=== PATIENT | female | born 1985 | race Caucasian/White ===

== ENCOUNTER 2018-08-02 01:03 | Outpatient (CLI) | payer BC, SELFPAY ==
--- NOTE | 2018-08-02 07:42 | DI.US_ITS ---
SYMPTOMS/DIAGNOSIS: LT ADNEXAL PAIN, R10.2, PELVIC AND PERINEAL PAIN, IUD SURVEILLANCE, Z30.431 PELVIC ULTRASOUND: Transabdominal and transvaginal examination was performed. There are no priors for comparison. The uterus measures 8.3 cm long x 4.1 cm AP x 4.7 cm transverse. The endometrial stripe is within normal limits at .5 cm. There is an intrauterine device seen in good position within the canal. No myometrial masses are present. The right ovary measures 3.1 x 2.2 x 2.7 cm. The left ovary measures 3 x 1.3 x 2.7 cm. Small follicular cysts are present bilaterally. There is normal blood flow to the ovaries. No findings to suggest torsion are seen. There is a small amount of free fluid in the cul-de-sac. No hydronephrosis is identified. IMPRESSION: Intrauterine device in good position. Otherwise negative examination.
== END 2018-08-02 01:23 ==
PROVIDERS: Visit Provider Nurse Practitioner Women's Health
DX: R10.2 Pelvic and perineal pain (principal); Z30.431 Encounter for routine checking of intrauterine contraceptive device
CPT/HCPCS: 76830; 76856

== ENCOUNTER 2019-10-31 09:18 | Outpatient (CLI) | payer BC, SELFPAY ==
[2019-10-31 10:38] LABS: BUN 14 mg/dL (7-18); CREATININE 0.65 mg/dL (0.55-1.02); Calcium 8.3 mg/dL (8.5-10.1); Calculated LDL 101 mg/dL; Chloride 104 mmol/L (98-107); Cholesterol 185 mg/dL (<200); Glucose 85 mg/dL (74-106); HDL Cholesterol 74 mg/dL (40-60); Potassium 3.7 mmol/L (3.5-5.1); Sodium 140 mmol/L (136-145); Triglyceride 52 mg/dL (<150)
== END 2019-10-31 09:38 ==
PROVIDERS: PCP Nurse Practitioner Family; Visit Provider Nurse Practitioner Family
DX: E78.5 Hyperlipidemia, unspecified (principal)
CPT/HCPCS: 36415; 80048; 80061

== ENCOUNTER 2019-12-05 14:31 | Emergency (ER) | payer BC, SELFPAY ==
[2019-12-05 14:43] VITALS: BP 115/59; PULSE 83; RESP 18; TEMP 37.2; O2SAT 99
--- NOTE | 2019-12-05 15:00 | DI.CT_ITS ---
EXAM: CT CHEST PE CTA CLINICAL HISTORY: hemoptysis TECHNIQUE: Post IV contrast according to the pulmonary embolism protocol. Axial CT angiography was performed with multi-slice acquisition and multi-planar and/or 3D reconstruc tions. COMPARISON: BARIUM SWALLOW UGI PA CXR from 10/03/2015 FINDINGS: There is no evidence of pulmonary emboli or aortic dissection. Heart size is normal. No infiltrate , pleural or pericardial effusions are seen. There is no evidence of mass or adenopathy. Incidental tiny nodules are seen in the lower left lower lobe. No suspicious bony abnormalities. Visualized p ortions of the upper abdomen are unremarkable. Breast implants are incidentally noted. IMPRESSION: No evidence of pulmonary emboli or other acute abnormality.
--- NOTE | 2019-12-05 15:08 | W.ED.GENAD ---
Discharge Plan Disposition Patient Disposition: HOME Condition: Stable Discharge Details Chief Complaint: RespSymp Clinical Impression: Bronchitis, Hemoptysis Primary Care Provider: Mignon Connor ED Provider: Deandre Dunbar Home Meds and New Rx's Prescriptions: New doxycycline hyclate 100 mg tablet 100 mg PO BID Qty: 14 RF: 0 Continued Mirena 20 mcg/24 hr (5 years) intrauterine device 1 insert IY ONCE RF: 0 Women's Multivitamin 18 mg-400 mcg- 500 mg-50 mcg tablet 1 tab PO DAILY RF: 0 citalopram 40 mg tablet 40 mg PO DAILY Qty: 90 RF: 4 buspirone 7.5 mg tablet 7.5 mg PO BID Qty: 180 RF: 4 Discharge Instructions Additional Instructions: Your cat scan did not show any pulmonary embolism or pneumonia. It did show a lung nodule which you should you inform them of when you follow up in a few weeks You are being treated with antibiotics given how long you have had symptoms for and the blood in your sputum if you feel more ill, have worsening shortness of breath or high fevers return to the emergency department if you still don't feel well in a week or not improved follow up with your primary care provider Medical Decision Making 34 yo female with hx of anxiety who underwent breast augmentation surgery in November comes in with cough and subjective fevers and chills along with nasal congestion for 5 days and has had intermittent blood in the sputum. No recent travel, denies smoking or drug use and uses alcohol occassionally. Was seen by pcp and referred here for concern for dvt. She denies being immobile after the surgery, d/c'd on the same day. No leg swelling or calf pain. She is in no distress on exam speaking in full sentences, clear lung sounds and does have clear rhinorrhea. Suspect uri vs sinusitis but given recent surgery with hemoptysis will obtain cta given wells score is moderate. patient's labs and imaging unremarkable and remains stable. Has a lung nodule that I informed her of. Given her symptoms and hemoptysis feel abx indicated, will start doxycycline and advised to f/u with pcp and return precautions given Differential Diagnosis Differential Diagnosis: uri, pulmonary embolism, pneumonia Medical Records Medical records reviewed: Yes I reviewed the patient's medical records. Imaging Data Radiologic Study: Attestation: I personally reviewed and interpreted this imaging study as follows: Radiologist's impression: IMPRESSION: No acute abnormality. Two and 3 mm nodules in superior segment left lower lobe. Followup as per Fleischner society guidelines below Lab Data Lab results reviewed: Yes I reviewed the patient's lab results. HPI General Mode of arrival: ambulatory. Date/Time Provider Initiated Documentation: 12/05/19 14:56. Limitations to Documentation: no limitations. Information obtained by: patient. History of Present Illness 34 year old F presents to the emergency department with the chief complaint of coughing up blood, described as moderate, Patient started experiencing this day(s) (4) and it has been intermittent. No relieving factors improve symptom(s), No exacerbating factors reported . Patient notes cough. Patient did receive the following treatments prior to arrival, none Related Data Home Medications Medication Instructions Recorded Confirmed [id number]-[id number] 18 mg-FA 400 1 tab PO DAILY tab 06/10/18 12/05/19 mcg-calcium 500 mg-vit K 50 mcg tablet levonorgestrel 20 mcg/24 hours (5 1 insert IY ONCE 10/28/18 12/05/19 yrs) 52 mg intrauterine device citalopram 40 mg tablet 40 mg PO DAILY #90 tab 03/28/19 12/05/19 buspirone 7.5 mg tablet 7.5 mg PO BID #180 tab 06/30/19 12/05/19 doxycycline hyclate 100 mg PO BID #14 tab 12/05/19 Previous Rx's Medication Instructions Recorded citalopram 40 mg tablet 40 mg PO DAILY #90 tab 03/28/19 buspirone 7.5 mg tablet 7.5 mg PO BID #180 tab 06/30/19 doxycycline hyclate 100 mg PO BID #14 tab 12/05/19 Allergies Allergy/AdvReac Type Severity Reaction Status Date / Time amoxicillin Allergy hives Verified 12/05/19 14:49 General Stated Complaint: RespSymp LENORE: 2 Review of Systems All systems reviewed & are unremarkable except as noted in HPI and below Cardiovascular Cardiovascular: Denies chest pain and Denies dyspnea Respiratory Respiratory: Denies dyspnea Gastrointestinal Gastrointestinal: Denies abdominal pain, Denies nausea and Denies vomiting Musculoskeletal Musculoskeletal: Denies joint swelling [facility] Medical History (Updated 12/05/19 @ 17:11 by Deandre Dunbar MD) Abnormal Pap smear of cervix (Resolved) DENYS II 01/2008 s/p LEEP ASCUS, -HPV 10/14 & 11/15 ASCUS, +HPV 2012 s/p colposcopy which was negative Normal Paps since Depressive disorder (Chronic) Generalized anxiety disorder (Chronic) Hyperlipidemia (Chronic) IUD surveillance (Chronic) Mirena IUD Inserted 04/23/18 Surgical History (Updated 10/28/18 @ 09:15 by Mignon Connor NP) S/P LEEP (Inactive ~2007) Status post colposcopy (Inactive ~2012) Family History (Updated 10/28/18 @ 09:13 by Mignon Connor NP) Mother No problems noted. Father No problems noted. Sister Hyperthyroidism Son No problems noted. Maternal Grandfather No problems noted. Maternal Grandmother Pancreatic cancer Diabetes Paternal Grandfather No problems noted. 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 Pets and animals: Yes Pets and animals: dog(s) Sexually active: Yes Do you think of yourself as: straight/heterosexual Current gender identity: female What is your relationship status?: living with partner How often do you talk on the phone with friends or family?: twice per week How often do you get together with friends or relatives?: once per week How often do you attend adventism or muslim services?: decline to answer Do you belong to any clubs or organized social groups?: no Panel score (0-1 are the most socially isolated patients): 2 What type of physical activity do you participate in: walking Duration: 15-30 minutes/day Frequency: 3-4 times per week Lora/Pentecostalism: Mormon Special lora needs: No Seatbelt use: always Helmet use: Yes Helmet use: always Drive intox or ride w/intox cdl truck driver: No Do you feel safe at home: Yes Do you feel safe in your relationship?: Yes Female Reproductive History Menstrual control method: progestin IUCD (Mirena placed 04/23/18) History History 1 Para 1 Hx # Term Pregnancies Multiple births Hx # Pregnancies Ectopic pregnancies AB induced Hx Number of Living Children 1 AB spontaneous Exam Const General: no acute distress Orientation: alert HENMT Head: normal to inspection Ears: external ears normal General nose exam: external nose normal Mouth: moist mucous membranes Eyes General: appearance normal, both eyes and all related structures Neck Neck: normal visual inspection Resp Effort & Inspection: normal respiratory effort and able to speak in complete sentences Cardio Rate: regular rate Skin General skin exam: no rashes or lesions noted Neuro General: alert and oriented x3 Extrem General: normal to inspection Psych Mental Status: mental status grossly normal Course Vital Signs Vital signs: Vital Signs Temperature 37.2 C 12/05/19 14:43 Pulse 83 12/05/19 14:43 Respiratory Rate 18 12/05/19 14:43 Blood Pressure 115/59 L 12/05/19 14:43 Pulse Oximetry 99 12/05/19 14:43 Temperature 37.2 C 12/05/19 14:43 Temperature Source Oral 12/05/19 14:43 Pulse 83 12/05/19 14:43 Respiratory Rate 18 12/05/19 14:43 Respiratory Effort Non-Labored 12/05/19 14:48 Blood Pressure 115/59 L 12/05/19 14:43 Blood Pressure Position Sitting 12/05/19 14:43 Pulse Oximetry 99 12/05/19 14:43 Oxygen Delivery Method Room Air 12/05/19 14:43 Oxygen Flow Rate 0 12/05/19 14:43 Pain Level 0 12/05/19 14:43
[2019-12-05 15:28] LABS: Abs Immature Grans 0.02 k/cumm (0.0-0.09); Absolute Basophil Count 0.03 k/cumm (0.0-0.2); Absolute Eosinophil Count 0.11 k/cumm (0.0-0.7); Absolute Lymphocyte Count 1.74 k/cumm (1.2-3.4); Absolute Monocyte Count 1.34 k/cumm (0.11-0.7); Basophils % 0.3; HCT 37.4 % (36.0-46.0); HGB 12.1 g/dL (12.0-15.5); Immature Grans % 0.2 %; Lymphocytes % 15.4; Mean Corp. HGB Concentration 32.4 g/dL (32.0-36.0); Mean Corpuscular Hemoglobin 29.2 pg (27.0-33.0); Mean Corpuscular Volume 90.3 fL (80-95); Mean Platelet Volume 8.7 fL (8.0-11.0); Monocytes % 11.9; Neutrophils % 71.2; Platelet Count 342 x1000/uL (130-400); RBC 4.14 m/cumm (4.00-5.20); RBC Distribution Width 12.8 % (11.7-14.6); White Blood Cell Count 11.29 k/cumm (4.4-10.8)
[2019-12-05 15:29] LABS: Absolute Neutrophil Count 8.04 k/cumm (1.2-6.7)
[2019-12-05 15:32] VITALS: BP 115/67; PULSE 79; O2SAT 97
[2019-12-05 15:40] LABS: PTT Activated 27.1 sec (21.0-31.4); Prothrombin Time 10.1 sec (9.3-11.0)
[2019-12-05 15:41] LABS: ALT 32 U/L (14-59); AST 18 U/L (15-37); Albumin 4.1 g/dL (3.4-5.0); Alkaline Phosphatase 70 U/L (46-116); Anion Gap 9.2 mmol/L (3-11); BUN 14 mg/dL (7-18); Bilirubin, Total 0.5 mg/dL (0.2-1.0); CO2 28.8 mmol/L (21.0-32.0); Calcium 8.9 mg/dL (8.5-10.1); Chloride 101 mmol/L (98-107); Glucose 84 mg/dL (74-106); Potassium 3.9 mmol/L (3.5-5.1); Sodium 139 mmol/L (136-145); Total Protein 7.8 g/dL (6.4-8.2)
[2019-12-05] MEDS: Omnipaque 350 MG/ML 100 ML BTL IJ (16:17)
--- NOTE | 2019-12-05 16:51 | DI.VRAD_ITS ---
PROCEDURE INFORMATION: Exam: CT Angiography Chest With Contrast Exam date and time: 12/05/2019 3:08 PM Age: 34 years old Clinical indication: Other: Hemoptysis; Prior surgery; Additional info: Per PT: Breast surg 12/22 TECHNIQUE: Imaging protocol: Computed tomographic angiography of the chest with intravenous contrast. 3D rendering: MIP and/or 3D reconstructed images were created by the technologist. COMPARISON: RF BARIUM SWALLOW UGI PA CXR 10/03/2015 9:34 AM FINDINGS: Pulmonary arteries: Normal. No pulmonary emboli. Aorta: Unremarkable. No aortic aneurysm. No aortic dissection. Lungs: 3 mm and 2 mm nodules in the superior left lower lobe. Pleural space: Unremarkable. No pneumothorax. No pleural effusion. Heart: Unremarkable. No cardiomegaly. No pericardial effusion. Lymph nodes: Unremarkable. No enlarged lymph nodes. Bones/joints: Unremarkable. No acute fracture. Soft tissues: There are bilateral breast implants noted. IMPRESSION: No acute abnormality. Two and 3 mm nodules in superior segment left lower lobe. Followup as per Fleischner society guidelines below. New Fleischner Society guidelines for followup and management of pulmonary nodules (2017) Solid nodules Solitary nodule size: <6 mm ? low risk patients: no follow-up needed ? high risk patients: optional CT at 12 months Solitary nodule size: 6-8 mm ? low risk patients: follow-up at 6-12 months, then consider further follow-up at 18-24 months ? high risk patients: initial follow-up CT at 6-12 months and then at 18-24 months if no change Solitary nodule size: >8 mm ? either low or high risk patients o consider follow-up CT at 3 months, and/or CT-PET, and/or biopsy Multiple nodules size: <6 mm ? low risk patients: no routine follow-up ? high risk patients: optional CT at 12 months Multiple nodules size: 6-8 mm ? low risk patients: follow-up at 3-6 months, then consider further follow-up at 18-24 months ? high risk patients: follow-up at 3-6 months, then at 18-24 months if no change Multiple nodules size: >8 mm ? low risk patients: follow-up at 3-6 months, then consider further follow-up at 18-24 months ? high risk patients: follow-up at 3-6 months, then at 18-24 months if no change Note: newly detected indeterminate nodule in persons 35 years of age or older. ? low risk patients: minimal or absent history of smoking and or other known risk factors ? high risk patients: history of smoking or of other known risk factors (e.g. first degree relative with lung cancer, or exposure to asbestos, radon, uranium) ? if a nodule up to 8 mm is partly solid or is ground glass further follow up is required after 24 months to exclude possible slow growing adenocarcinoma ([facility]INNE) Dictated and Authenticated by: Martina Welch MD. Ordering:REJI Carrera MD
== END 2019-12-05 17:20 | disposition home or self-care (01) ==
PROVIDERS: Emergency Provider Emergency Medicine; PCP Nurse Practitioner Family
DX: J20.9 Acute bronchitis, unspecified (principal); R04.2 Hemoptysis
CPT/HCPCS: 71275; 80053; 99285; 85025; 85610; 85730; 99284; J3490

== ENCOUNTER 2020-04-26 13:37 | Outpatient (REF) | payer BC, SELFPAY ==
[2020-04-26 14:09] LABS: Abs Immature Grans 0.02 k/cumm (0.0-0.09); Absolute Basophil Count 0.02 k/cumm (0.0-0.2); Absolute Eosinophil Count 0.08 k/cumm (0.0-0.7); Absolute Lymphocyte Count 1.64 k/cumm (1.2-3.4); Absolute Monocyte Count 0.59 k/cumm (0.11-0.7); Absolute Neutrophil Count 3.83 k/cumm (1.2-6.7); Basophils % 0.3; Eosinophils % 1.3; HCT 40.5 % (36.0-46.0); HGB 13.2 g/dL (12.0-15.5); Immature Grans % 0.3 %; Lymphocytes % 26.5; Mean Corp. HGB Concentration 32.6 g/dL (32.0-36.0); Mean Corpuscular Hemoglobin 29.2 pg (27.0-33.0); Mean Corpuscular Volume 89.6 fL (80-95); Monocytes % 9.5; Neutrophils % 62.1; Platelet Count 287 x1000/uL (130-400); RBC 4.52 m/cumm (4.00-5.20); RBC Distribution Width 12.9 % (11.7-14.6); White Blood Cell Count 6.18 k/cumm (4.4-10.8)
[2020-04-26 21:13] LABS: ALT 22 U/L (14-59); AST 16 U/L (15-37); Albumin 4.5 g/dL (3.4-5.0); Alkaline Phosphatase 58 U/L (46-116); Anion Gap 11.8 mmol/L (3-11); BUN 15 mg/dL (7-18); Bilirubin, Total 0.4 mg/dL (0.2-1.0); CO2 26.2 mmol/L (21.0-32.0); CREATININE 0.73 mg/dL (0.55-1.02); Calcium 9.5 mg/dL (8.5-10.1); Chloride 101 mmol/L (98-107); FREE T4 0.87 ng/dL (0.76-1.46); Glucose 82 mg/dL (74-106); Potassium 4.4 mmol/L (3.5-5.1); Sodium 139 mmol/L (136-145); TSH 1.48 uIU/mL (0.36-3.74); Total Protein 7.7 g/dL (6.4-8.2)
== END 2020-04-26 13:57 ==
LOC: LBN 13:37
PROVIDERS: PCP Nurse Practitioner Family; Visit Provider Nurse Practitioner Family
DX: R55 Syncope and collapse (principal); R53.83 Other fatigue
CPT/HCPCS: 80053; 84439; 84443; 85025

== ENCOUNTER 2020-07-16 21:36 | Outpatient (REF) | payer BC, SELFPAY | END 2020-07-16 21:56 | LOC: LBN 21:36 | PROVIDERS: PCP Nurse Practitioner Family; Visit Provider Physician Assistant | DX: J02.9 Acute pharyngitis, unspecified (principal) | CPT/HCPCS: 87070 ==

== ENCOUNTER 2020-07-17 16:30 | Emergency (ER) | payer BC, SELFPAY ==
[2020-07-17 16:40] VITALS: BP 114/79; PULSE 94; RESP 18; TEMP 38.3; O2SAT 97
--- NOTE | 2020-07-17 17:13 | W.ED.GENAD ---
Discharge Plan Disposition Patient Disposition: HOME Condition: Stable Discharge Details Clinical Impression: Pharyngitis Primary Care Provider: Mignon Connor ED Provider: Tala Peralta Home Meds and New Rx's Prescriptions: New oxycodone 5 mg tablet 5 mg PO Q6H PRN (Reason: pain) Qty: 10 RF: 0 Continued Mirena 20 mcg/24 hr (5 years) intrauterine device 1 insert IY ONCE RF: 0 clindamycin HCl 300 mg capsule 300 mg PO TID Qty: 30 RF: 0 clindamycin HCl 300 mg capsule 300 mg PO TID Qty: 30 RF: 0 Women's Multivitamin 18 mg-400 mcg- 500 mg-50 mcg tablet 1 tab PO DAILY RF: 0 buspirone 10 mg tablet 10 mg PO TID Qty: 270 RF: 4 citalopram 40 mg tablet 40 mg PO DAILY Qty: 90 RF: 4 Discharge Instructions Instructions: Pharyngitis (ED) Additional Instructions: Drink plenty of fluids and get plenty of rest. Alternate tylenol and motrin as needed and directed for pain. Take the antibiotics until finished. Follow-up with your primary care doctor within the next 2 days. Return immediately to the emergency department with any worsening or new concerning symptoms such as persistent fevers, worsening pain, worsening difficulty swallowing, tongue or neck swelling. Discharge Data Discharge Date/Time-TO BE ENTERED AT DEPARTURE: 07/17/20 18:40 Discharge Physician: Tala Peralta Medical Decision Making [id number] -- 35-year-old female with right-sided sore throat, fever and chills for the past 2 days. Rapid strep at urgent care yesterday negative and treated for possible tonsillitis with clindamycin. Temp 100.9 on arrival. Patient appears uncomfortable. She has no drooling or trismus. She is able to open her mouth and full view of the posterior pharynx is obtained. She has right-sided tonsillar erythema, edema and exudates in comparison to the left side but does not appear consistent with peritonsillar abscess. She has no submandibular swelling, lymphadenopathy. Rapid strep negative. Discussed with patient that I do not see an obvious drainable peritonsillar abscess at this time, but however she could have significant inflammation in this area or in the early stage of an abscess. Recommended obtaining lab work and imaging for further evaluation but patient states she would rather treat with steroids and pain medication at this time. We will give a dose of IM Toradol, p.o. Decadron, Tylenol and oxycodone and reassess. test negative. 1830 --patient reassessed and she feels much better. Pt appears much more comfortable. She has a ride for home. Will give a prescription for oxycodone for pain control. She is advised to finish her antibiotics as prescribed. Discussed with patient that she could have a developing abscess and that she needs to return here immediately with any worsening symptoms for reevaluation and consideration of imaging at that time. Advised to follow up with the primary care doctor for re-evaluation. Usual and customary return precautions given prior to discharge. Medical Records Medical records reviewed: Yes I reviewed the patient's medical records. HPI General Mode of arrival: ambulatory. Date/Time Provider Initiated Documentation: 07/17/20 16:54. Limitations to Documentation: no limitations. Information obtained by: patient. HPI Narrative: Patient is a 35-year-old female who presents to the ED with complaint of right-sided sore throat, fever and chills for the past 2 days. She was seen at urgent care yesterday and had a negative rapid strep and diagnosed with tonsillitis vs tonsillar stone and started on clindamycin. She states she has taken a total of 6 doses but feels that her pain is getting worse. She states she had a left-sided sore throat 1 month ago which was treated with complete resolution with clindamycin. Patient is complaining of significant pain with swallowing and difficulty opening her mouth due to pain. She has been taking Tylenol and Motrin for pain without relief. Last dose of any medication this morning. Related Data Home Medications Medication Instructions Recorded Confirmed [id number]-[id number] 18 mg-FA 400 1 tab PO DAILY tab 06/10/18 07/17/20 mcg-calcium 500 mg-vit K 50 mcg tablet levonorgestrel 20 mcg/24 hours (5 1 insert IY ONCE 10/28/18 07/17/20 yrs) 52 mg intrauterine device buspirone 10 mg tablet 10 mg PO TID #270 tab 12/27/19 07/17/20 citalopram 40 mg tablet 40 mg PO DAILY #90 tab 04/05/20 07/17/20 clindamycin HCl 300 mg capsule 300 mg PO TID #30 cap 06/13/20 07/17/20 clindamycin HCl 300 mg capsule 300 mg PO TID #30 cap 07/16/20 07/17/20 oxycodone 5 mg PO Q6H PRN #10 tab 07/17/20 Previous Rx's Medication Instructions Recorded buspirone 10 mg tablet 10 mg PO TID #270 tab 12/27/19 citalopram 40 mg tablet 40 mg PO DAILY #90 tab 04/05/20 clindamycin HCl 300 mg capsule 300 mg PO TID #30 cap 06/13/20 clindamycin HCl 300 mg capsule 300 mg PO TID #30 cap 07/16/20 oxycodone 5 mg PO Q6H PRN #10 tab 07/17/20 Allergies Allergy/AdvReac Type Severity Reaction Status Date / Time amoxicillin Allergy hives Verified 07/17/20 16:51 General Stated Complaint: Sorethroat LENORE: 2 Review of Systems All systems reviewed & are unremarkable except as noted in HPI and below Constitutional Constitutional: Reports as per HPI, Denies chills and Denies fever(s) Eyes Eyes: Denies blurry vision ENT Ears, Nose, Mouth, and Throat: Denies dizziness, Reports sore throat and Denies throat swelling Cardiovascular Cardiovascular: Denies chest pain and Denies dyspnea Respiratory Respiratory: Denies cough and Denies dyspnea Gastrointestinal Gastrointestinal: Denies abdominal pain, Denies diarrhea and Denies vomiting Genitourinary Genitourinary: Denies hematuria and Denies dysuria Musculoskeletal Musculoskeletal: Denies back pain and Denies numbness Integumentary/Breasts Skin/Breast: Denies lesions and Denies rash Neurologic Neurologic: Denies dizziness, Denies localized weakness and Denies numbness Allergic/Immunologic Allergic/Immunologic: Denies throat swelling [facility] Medical History (Updated 07/17/20 @ 18:18 by Tala Peralta DO) Abnormal Pap smear of cervix DENYS II 01/2008 s/p LEEP ASCUS, -HPV 10/14 & 11/15 ASCUS, +HPV 2012 s/p colposcopy which was negative Normal Paps since Depressive disorder Generalized anxiety disorder Hyperlipidemia IUD surveillance Mirena IUD Inserted 04/23/18 Surgical History S/P augmentation mammaplasty (11/24/19) S/P LEEP (~2007) Status post colposcopy (~2012) Family History Mother No problems noted. Father No problems noted. Sister Hyperthyroidism Son No problems noted. Maternal Grandfather No problems noted. Maternal Grandmother Pancreatic cancer Diabetes Paternal Grandfather No problems noted. 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 Pets and animals: Yes Pets and animals: dog(s) Sexually active: Yes Do you think of yourself as: straight/heterosexual Current gender identity: female What is your relationship status?: living with partner How often do you talk on the phone with friends or family?: twice per week How often do you get together with friends or relatives?: once per week How often do you attend buddhist or adventist services?: decline to answer Do you belong to any clubs or organized social groups?: no Panel score (0-1 are the most socially isolated patients): 2 What type of physical activity do you participate in: walking Duration: 15-30 minutes/day Frequency: 3-4 times per week Lora/Church: [employer] Special lora needs: No Seatbelt use: always Helmet use: Yes Helmet use: always Drive intox or ride w/intox over the road driver: No Do you feel safe at home: Yes Do you feel safe in your relationship?: Yes Female Reproductive History Menstrual control method: progestin IUCD (Mirena placed 04/23/18) History History 1 Para 1 Hx # Term Pregnancies Multiple births Hx # Pregnancies Ectopic pregnancies AB induced Hx Number of Living Children 1 AB spontaneous Exam Const General: cooperative, healthy appearing and no acute distress HENMT Head: normal to inspection Ears: hearing grossly normal bilaterally, external ears normal and TM's normal bilaterally Face and sinus: normal facial exam Mouth: oral mucosae normal Throat: uvula midline, no peritonsillar masses and posterior oropharynx abnormal edema (Mild to moderate right side), erythema (Right-sided) and exudates (Right side) Eyes General: appearance normal, both eyes and all related structures Neck Neck: normal visual inspection, no lymphadenopathy, no meningeal signs, trachea midline, supple, no anterior neck swelling and No submandibular swelling Resp Effort & Inspection: normal respiratory effort and able to speak in complete sentences Cardio Rate: regular rate Skin General skin exam: no rashes or lesions noted Neuro General: patient alert, patient awake and patient oriented x3 Motor: muscle tone normal throughout Extrem General: normal to inspection and full ROM Psych Appearance: grossly normal Affect: normal affect Course Vital Signs Vital signs: Vital Signs Temperature 100.9 F H 07/17/20 16:40 Pulse 94 H 07/17/20 16:40 Respiratory Rate 18 07/17/20 16:40 Blood Pressure 114/79 07/17/20 16:40 Pulse Oximetry 97 07/17/20 16:40 Temperature 100.9 F H 07/17/20 16:40 Temperature Source Oral 07/17/20 16:40 Pulse 94 H 07/17/20 16:40 Respiratory Rate 18 07/17/20 16:40 Respiratory Effort Non-Labored 07/17/20 16:50 Blood Pressure 114/79 07/17/20 16:40 Blood Pressure Position Sitting 07/17/20 16:40 Pulse Oximetry 97 07/17/20 16:40 Oxygen Delivery Method Room Air 07/17/20 16:40 Oxygen Flow Rate 0 07/17/20 16:40 Pain Level 9 07/17/20 16:40 Lab/Test Results Lab/Test Results: 07/17/20 17:12 Pharynx Throat Culture - Pending POC Strep Test-JOE(Rapid) Start: 07/17/20 17:10 Freq: .Rapid Strep Test Status: Active Protocol: Document 07/17/20 17:11 [facility] [place] (Rec: 07/17/20 17:11 [facility] [place] [id number]) Strep test-JOE(Rapid)-POC POC-Strep test-JOE (Rapid) Negative POC-Strep test-JOE (Rapid) Negative
[2020-07-17] MEDS: Acetaminophen 325 MG TAB 650 MG PO (17:22)
[2020-07-17] MEDS: Ketorolac 60 MG/2 ML VIAL IM (17:23)
[2020-07-17] MEDS: oxyCODONE 5 MG TAB PO (17:23)
[2020-07-17] MEDS: Dexamethasone 10 MG/ML VIAL PO (17:23)
== END 2020-07-17 18:40 | disposition home or self-care (01) ==
PROVIDERS: Emergency Provider Physician Assistant; PCP Nurse Practitioner Family
DX: J02.8 Acute pharyngitis due to other specified organisms (principal); R50.9 Fever, unspecified
CPT/HCPCS: 81025; 87880; 96372; 99284; 87070; J1100; J1885

== ENCOUNTER 2020-11-01 02:31 | Outpatient (CLI) | payer BC, SELFPAY ==
[2020-11-02 13:40] LABS: COVID-19 RT-PCR UVMMC Result Negative (Negative)
== END 2020-11-01 02:51 ==
PROVIDERS: PCP Nurse Practitioner Family; Visit Provider Otolaryngology Otolaryngology/Facial Plastic Surgery
DX: Z11.52 Encounter for screening for COVID-19 (principal); Z01.818 Encounter for other preprocedural examination
CPT/HCPCS: U0003

== ENCOUNTER 2020-11-05 06:10 | Day surgery (SDC) | payer BC, SELFPAY ==
[2020-11-05 06:31] VITALS: BP 130/79; PULSE 72; RESP 20; TEMP 36.7; O2SAT 98
[2020-11-05] MEDS: Lactated Ringers 1,000 ML 80 ML IV (06:55)
--- NOTE | 2020-11-05 07:35 | W.PM.OP ---
Operative Note Operative Note DATE OF PROCEDURE: 11/05/20 PRE-OP DIAGNOSIS: chronic tonsilitis, history of HPV POST-OP DIAGNOSIS: same post uvlua lesion PROCEDURE: Tonsillectomy, uvula biospy, history of HPV SURGEON: Elan Arnold ESTIMATED BLOOD LOSS: 15 PATHOLOGY: other (3+ invaginated tonsils and post uvula lesion) COMPLICATIONS: None Patient was transported to: PACU Patient's condition: stable Indications: chronic tonsilitis Findings: post uvula lesion, Procedure Description: PROCEDURE IN DETAIL: Patient was brought back to the operating suite in stable condition, placed supine on the operating table, and intubated in normal fashion. The table was rotated 90 degrees. There was no evidence of submucosal clefting or bifid uvula. The McIvor retractor was placed in the oral cavity and suspended from the Zheng stand. The right tonsil was grasped in the superior pole and medialized. Pinpoint cautery was used to develop the peritonsillar fascial plane, dissection was carried out to the upper and mid portions of the tonsil with final amputation conducted with suction cautery. There was no bleeding within the right tonsillar fossa. Next, the left tonsil was grasped in the superior pole with a curved Allis forceps and medialized. Pinpoint cautery was used to develop the peritonsillar fascial plane. This plane was with large scar, stones and high vascularity. Post superior tonsil fossas with large vessles, controle, no re bleed upon valsalva. Floseal was placed. Dissection was carried out in the plane in the superior and mid portion of the tonsils. Increased OR time of 40 mins. due to chronic past infections and difficult dissection. Final amputation was conducted with suction cautery without bleeding within left fossa, Valsalva was performed without bleeding. TMJ's were checked and were free of dislocation. Gastric contents suctioned. The patient tolerated the procedure well and went to PACU in stable condition
--- NOTE | 2020-11-05 08:05 | TONSIL_PTH ---
PATIENT: Ermelinda Shaw LOC: [facility] U#:[id number] AGE/SX: 35/F ROOM: RE11/05/[address]: Elan Arnold DO : 1985 BED: DIS: 11/05/2020 SPEC #: [id number] RECD: 11/05/20 13:00 STATUS: LUIS GARCÍA #: [id number] JIMMY: 11/05/20 08:[address]: Elan Arnold DEPT: Surgical Specimen RECD BY: Kylie Warren ENTERED: 11/05/20 13:01 SP TYPE: TONSIL OTHR DR: PAVITHRA Hayden Tissues: 1 - UVULA 2 - TONSIL AGE 17 & OVER 3 - TONSIL AGE 17 & OVER Procedures: GROSS AND MICRO LEVEL 3 Comments: [id number]
[2020-11-05] MEDS: Oxymetazolone 0.05% SPRAY 15 ML BTL (08:30)
--- NOTE | 2020-11-05 08:44 | W.PM.DSUDISC ---
Discharge Plan Disposition Patient Disposition: HOME Condition: Good Discharge Details Attending Provider: Elan Arnold Primary Care Provider: Mignon Connor Home Meds and New Rx's Prescriptions: No Action Mirena 20 mcg/24 hr (5 years) intrauterine device 1 insert IY ONCE RF: 0 buspirone 10 mg tablet 10 mg PO TID Qty: 270 RF: 4 citalopram 40 mg tablet 40 mg PO DAILY Qty: 90 RF: 4 vitamin B complex Tablet 1 tab PO DAILY RF: 0 Discharge Instructions Additional Instructions: see sheet Remove Dressings/Wound Care:: 24 hours Shower/Bathe:: 24 hours Diet:: As Tolerated
[2020-11-05 09:05] VITALS: BP 118/68; PULSE 56; RESP 15; TEMP 36.4; O2SAT 100
[2020-11-05 09:10] VITALS: BP 116/53; PULSE 61; RESP 17; TEMP 36.4; O2SAT 99
[2020-11-05 09:15] VITALS: BP 110/55; PULSE 62; RESP 14; TEMP 36.5; O2SAT 100
[2020-11-05] MEDS: oxyCODONE 5 mg/Acetaminophen 325 mg TAB PO (10:04)
[2020-11-05 10:12] VITALS: BP 136/85; PULSE 54; RESP 16; TEMP 36.2; O2SAT 100
== END 2020-11-05 11:17 | disposition home or self-care (01) ==
PROVIDERS: PCP Nurse Practitioner Family; Visit Provider Otolaryngology Otolaryngology/Facial Plastic Surgery
PROC: (CPT 42826; principal; 2020-11-05 07:30)
DX: J35.01 Chronic tonsillitis (principal); D10.39 Benign neoplasm of other parts of mouth; Z87.898 Personal history of other specified conditions; J03.90 Acute tonsillitis, unspecified
CPT/HCPCS: 42826; 42100; 81025; 88304; J1100; J2001; J2405; J2704; J3010

== ENCOUNTER 2020-11-16 03:41 | Observation (INO) | payer BC, SELFPAY ==
[2020-11-16] VITALS (14 sets, daily range): BP systolic 97–142; BP diastolic 54–77; PULSE 55–86; RESP 10–18; TEMP 36–37; O2SAT 97–100
--- NOTE | 2020-11-16 03:48 | ED.GENADUL_ITS ---
Discharge Plan Disposition Patient Disposition: [facility] INPATIENT Condition: Stable Discharge Details Clinical Impression: Hemorrhage, tonsil, postoperative Primary Care Provider: Mignon Connor ED Provider: Gilbert Montenegro Hercules Savladors and New Rx's Prescriptions: No Action Mirena 20 mcg/24 hr (5 years) intrauterine device 1 insert IY ONCE RF: 0 buspirone 10 mg tablet 10 mg PO TID Qty: 270 RF: 4 citalopram 40 mg tablet 40 mg PO DAILY Qty: 90 RF: 4 vitamin B complex Tablet 1 tab PO DAILY RF: 0 Medical Decision Making Patient stable at this point. No brisk active bleeding. Will await ENT arrival. Patient has been seen by ENT, Dr. Arnold. Patient will be taken to the OR for further management. IV established. She remained stable here. HPI General Mode of arrival: ambulatory . Date/Time Provider Initiated Documentation: 11/16/20 03:42 . Limitations to Documentation: no limitations . Information obtained by: patient and RN notes reviewed . HPI Narrative: Patient presents to ED with postop tonsillar bleeding. Patient underwent tonsillectomy on the first of this month. She had been doing fine but woke up choking on blood this morning. She estimates spitting out at least 1/4 cup of blood. She still feels some dripping but does not have the same amount of bleeding that she had prior to coming in. She has no pain. She has no difficulty breathing. She contacted the surgeon, who is supposed to be meeting her here. Related Data Home Medications Medication Instructions Recorded Confirmed levonorgestrel 20 mcg/24 hours (6 1 insert IY ONCE 10/28/18 11/02/20 yrs) 52 mg intrauterine device buspirone 10 mg tablet 10 mg PO TID #270 tab 12/27/19 11/05/20 citalopram 40 mg tablet 40 mg PO DAILY #90 tab 04/05/20 11/05/20 vitamin B complex 1 tab PO DAILY 11/02/20 11/05/20 Previous Rx's Medication Instructions Recorded buspirone 10 mg tablet 10 mg PO TID #270 tab 12/27/19 citalopram 40 mg tablet 40 mg PO DAILY #90 tab 04/05/20 Allergies Allergy/AdvReac Type Severity Reaction Status Date / Time amoxicillin Allergy hives Verified 11/05/20 06:54 General Stated Complaint: GenMedical LENORE: 3 Review of Systems Narrative: As documented in HPI otherwise negative as below. Const: no fever, chills, weakness Resp: no cough, SOB, pleuritic pain CV: no CP, diaphoresis, edema, syncope GI: no abdominal pain, nausea, vomiting, diarrhea Neuro: no headache, numbness, focal weakness, confusion PFSH Medical History Abnormal Pap smear of cervix DENYS II 01/2008 s/p LEEP ASCUS, -HPV 10/14 & 11/15 ASCUS, +HPV 2012 s/p colposcopy which was negative Normal Paps since Depressive disorder Generalized anxiety disorder Hyperlipidemia IUD surveillance Mirena IUD Inserted 04/23/18 Surgical History S/P augmentation mammaplasty (11/24/19) S/P LEEP (~2007) S/P tonsillectomy Status post colposcopy (~2012) Family History Mother No problems noted. Father No problems noted. Sister Hyperthyroidism Son No problems noted. Maternal Grandfather No problems noted. Maternal Grandmother Pancreatic cancer Diabetes Paternal Grandfather No problems noted. Paternal Grandmother Depression Social History Smoking/Tobacco Use Status: Never Second Hand Exposure: No Smoking risk assessment performed?: Yes Alcohol Intake: current Alcohol Intake frequency: holidays/special occasions only Alcohol type: wine Drug use: Never Substance use type: does not use Details: alcohol: t-2, 2.5 drinks Caregiver/Support person: No Household members: spouse and children Housing: house Communication Needs: None current occupation: [employer] Pets and animals: Yes Pets and animals: dog(s) Sexually active: Yes Do you think of yourself as: straight/heterosexual Current gender identity: female What is your relationship status?: living with partner How often do you talk on the phone with friends or family?: twice per week How often do you get together with friends or relatives?: once per week How often do you attend sabianist or yazidi services?: decline to answer Do you belong to any clubs or organized social groups?: no Panel score (0-1 are the most socially isolated patients): 2 What type of physical activity do you participate in: walking Duration: 15-30 minutes/day Frequency: 3-4 times per week Lora/Latter Day: Amish Special lora needs: No Seatbelt use: always Helmet use: Yes Helmet use: always Drive intox or ride w/intox trencher driver: No Do you feel safe at home: Yes Do you feel safe in your relationship?: Yes Female Reproductive History Menstrual control method: progestin IUCD History History 1 Para 1 Hx # Term Pregnancies Multiple births Hx # Pregnancies Ectopic pregnancies AB induced Hx Number of Living Children 1 AB spontaneous Exam Narrative Exam Narrative: Const: WDWN female in NAD. HEENT: NC/AT. Normal facial exam. Oropharynx reveals right tonsillar area to have dark red clot present at this point. Slight bright red blood noted but no brisk active bleeding. Eyes: Normal conjunctiva and sclera. Neck: Supple. Trachea midline. Lungs: Normal respiratory effort. Cor: Good radial pulses. Neuro: A+O x 3. Normal speech, mentation, gait. Cranial nerves II - XII grossly intact. No gross motor or sensory deficit. Ext: No C/C/E. Skin: Warm and dry without rash. Course Vital Signs Vital signs: Vital Signs Pulse 86 11/16/20 03:43 Respiratory Rate 18 11/16/20 03:43 Blood Pressure 142/72 H 11/16/20 03:43 Pulse Oximetry 98 11/16/20 03:43 Temperature Source Temporal Artery Scan 11/16/20 03:43 Pulse 86 11/16/20 03:43 Respiratory Rate 18 11/16/20 03:43 Respiratory Effort Non-Labored 11/16/20 03:47 Blood Pressure 142/72 H 11/16/20 03:43 Blood Pressure Position Sitting 11/16/20 03:43 Pulse Oximetry 98 11/16/20 03:43 Oxygen Delivery Method Room Air 11/16/20 03:43 Oxygen Flow Rate 0 11/16/20 03:43 Pain Level 0 11/16/20 03:43
--- NOTE | 2020-11-16 05:05 | PDOC.DSDIS_ITS ---
Discharge Plan Disposition Patient Disposition: [facility] INPATIENT Condition: Stable Discharge Details Clinical Impression: Hemorrhage, tonsil, postoperative Primary Care Provider: Mignon Connor ED Provider: Gilbert Montenegro Hepzibah Salvadors and New Rx's Prescriptions: No Action Mirena 20 mcg/24 hr (5 years) intrauterine device 1 insert IY ONCE RF: 0 buspirone 10 mg tablet 10 mg PO TID Qty: 270 RF: 4 citalopram 40 mg tablet 40 mg PO DAILY Qty: 90 RF: 4 vitamin B complex Tablet 1 tab PO DAILY RF: 0
--- NOTE | 2020-11-16 05:07 | W.PM.OP ---
Operative Note Operative Note DATE OF PROCEDURE: 11/16/20 PRE-OP DIAGNOSIS: post op tonsil right tonsil bleed, day #11 POST-OP DIAGNOSIS: same PROCEDURE: control R tonsil bleed SURGEON: Elan Arnold ANESTHESIA: RUDDY ESTIMATED BLOOD LOSS: 10 PATHOLOGY: none sent COMPLICATIONS: None Patient was transported to: PACU Patient's condition: stable Findings: Right clot tonsil fossa, day #11, suspect post scab fall off. Procedure Description: After patient evaluation in the emergency room department the OR team was called in, will transfer her to the operating suite, placed supine and intubated in normal fashion. The table was rotated 90 degrees. Timeout was taken to confirm preparation procedure. The right tonsillar fossa clot was evacuated. Suction cautery was used to control the pinpoint bleeding of the mid to superior fossa. Left fossa was moist no evidence of clotting. Patient has some diffuse oozing of the right superior tonsil fossa, we meticulously cauterized this, upon Valsalva at the completion of the first part of the case there was then a arterial bleed to the right posterior mid tonsil fossa. This was grasped controlled with electrocautery, considered suturing however this was well maintained. FloSeal was placed, numerous additional Valsalvas were performed, there was no bleeding, Gastric contents suctioned, all retractors removed, there was no injury to the jaw lips or dentition. Patient was stable to PACU. Recommended extended observation for 4 to 6 hours before discharge. Stable to PACU
[2020-11-16] MEDS: Lactated Ringers 1,000 ML 30 ML IV (05:16)
[2020-11-16] MEDS: Oxymetazolone 0.05% SPRAY 15 ML BTL (05:35)
[2020-11-16] MEDS: Tranexamic Acid 1,000 MG/10 ML VIAL 1000 MG (06:03)
[2020-11-16] MEDS: oxyCODONE 5 mg/Acetaminophen 325 mg TAB PO ×2 (07:54→11:21)
[2020-11-17 11:47] LABS: COVID-19 RT-PCR UVMMC Result Negative (Negative)
== END 2020-11-16 14:40 | disposition home or self-care (01) ==
LOC: ER 04:26 → MS 07:52 → ER 07:53 → SUR 07:53 → MS 07:53
PROVIDERS: Admitting Provider Otolaryngology Otolaryngology/Facial Plastic Surgery; Emergency Provider Emergency Medicine; PCP Nurse Practitioner Family; Visit Provider Otolaryngology Otolaryngology/Facial Plastic Surgery
PROC: (CPT 42960; principal; 2020-11-16 04:50)
DX: J95.830 Postprocedural hemorrhage of a respiratory system organ or structure following a respiratory system procedure (principal); Z20.828 Contact with and (suspected) exposure to other viral communicable diseases; E78.5 Hyperlipidemia, unspecified; F41.1 Generalized anxiety disorder
CPT/HCPCS: 42960; 99285; U0003; G0378; J1100; J2001; J2250; J2405; J2704; J3010

== ENCOUNTER 2020-12-04 08:45 | Outpatient (CLI) | payer BC, SELFPAY ==
[2020-12-05 12:26] LABS: COVID-19 RT-PCR UVMMC Result Negative (Negative)
== END 2020-12-04 08:46 | disposition home or self-care (01) ==
LOC: LBO 08:46
PROVIDERS: PCP Nurse Practitioner Family; Visit Provider Nurse Practitioner Family
DX: Z20.822 Contact with and (suspected) exposure to COVID-19 (principal)
CPT/HCPCS: U0003

== ENCOUNTER 2020-12-18 13:10 | Outpatient (REF) | payer BC, SELFPAY ==
[2020-12-19 14:09] LABS: Chlamydia Result Negative (Negative); GC Result Negative (Negative)
== END 2020-12-18 13:11 | disposition home or self-care (01) ==
LOC: LBN 13:10
PROVIDERS: PCP Nurse Practitioner Family; Visit Provider Nurse Practitioner Women's Health
DX: Z11.3 Encounter for screening for infections with a predominantly sexual mode of transmission (principal)
CPT/HCPCS: 87491; 87591

== ENCOUNTER 2022-02-04 11:24 | Outpatient (REF) | payer BC, SELFPAY ==
[2022-02-05 13:45] LABS: COVID-19 RT-PCR UVMMC Result Negative (Negative)
== END 2022-02-04 11:25 | disposition home or self-care (01) ==
LOC: LBN 11:24
PROVIDERS: PCP Nurse Practitioner Family; Visit Provider Family Medicine
DX: J02.9 Acute pharyngitis, unspecified (principal); Z20.822 Contact with and (suspected) exposure to COVID-19
CPT/HCPCS: U0003; 87070

== ENCOUNTER 2022-12-09 09:10 | Outpatient (CLI) | payer BC, SELFPAY ==
--- NOTE | 2022-12-09 08:45 | DI.RAD_ITS ---
Exam(s) XR ANKLE RT COMPLETE EXAM: XR ANKLE RT COMPLETE CLINICAL HISTORY: Rt ankle pain, M25.571, evaluate fx. TECHNIQUE: 2D digital imaging was performed. COMPARISON: No exams were available for comparison FINDINGS: 3 views No evidence of acute fracture nor widening of the ankle mortise. Talar dome unremarkable. Bone dens ity normal. No osseous lesions. No tarsal coalition evident. IMPRESSION: No significant radiograph findings in the ankle. DATA REPOSITORY: RADIATION DOSE DELIVERED:
== END 2022-12-09 09:30 ==
LOC: DI 09:11
PROVIDERS: PCP Nurse Practitioner Family; Visit Provider Nurse Practitioner Family
DX: M25.571 Pain in right ankle and joints of right foot (principal)
CPT/HCPCS: 73610

== ENCOUNTER 2023-01-23 09:36 | Outpatient (REF) | payer BC, SELFPAY ==
--- NOTE | 2023-01-23 08:30 | PAPFT_PTH ---
PATIENT: Ermelinda Shaw LOC: [facility] U#:[id number] AGE/SX: 37/F ROOM: RE01/23/[address]: PAVITHRA Hayden : 1985 BED: DIS: 01/23/2023 SPEC #: [id number] RECD: 01/23/23 13:11 STATUS: LUIS GARCÍA #: [id number] JIMMY: 01/23/23 08:[address]: Mignon Connor DEPT: [facility] Cytology RECD BY: Kylie Warren Tissues: 1 - CX/ENDOCX FOR PAP SMEARS Procedures: PAP THIN PREP/UVM Screening HPV DNA PROBE Comments: [id number] (CHLAMYDIA/GC)
[2023-01-26 14:55] LABS: Chlamydia Result Negative (Negative); GC Result Negative (Negative)
== END 2023-01-23 09:37 | disposition home or self-care (01) ==
LOC: LBN 09:36
PROVIDERS: PCP Nurse Practitioner Family; Visit Provider Nurse Practitioner Family
DX: Z11.3 Encounter for screening for infections with a predominantly sexual mode of transmission (principal); Z12.4 Encounter for screening for malignant neoplasm of cervix; Z11.51 Encounter for screening for human papillomavirus (HPV)
CPT/HCPCS: 87491; 87591; 88142; 87624

== ENCOUNTER 2023-06-10 10:42 | Outpatient (REF) | payer BC, SELFPAY ==
[2023-06-11 12:56] LABS: Chlamydia Result Negative (Negative); GC Result Negative (Negative)
== END 2023-06-10 10:43 | disposition home or self-care (01) ==
LOC: LBN 10:42
PROVIDERS: PCP Nurse Practitioner Family; Visit Provider Nurse Practitioner Women's Health
DX: N76.0 Acute vaginitis (principal); Z11.3 Encounter for screening for infections with a predominantly sexual mode of transmission
CPT/HCPCS: 87491; 87591; 87480; 87510; 87660

== ENCOUNTER 2023-09-09 10:12 | Outpatient (REF) | payer BC, SELFPAY ==
[2023-09-10 15:46] LABS: Chlamydia Result Negative (Negative); GC Result Negative (Negative)
== END 2023-09-09 10:13 | disposition home or self-care (01) ==
LOC: LBN 10:12
PROVIDERS: PCP Nurse Practitioner Family; Visit Provider Obstetrics & Gynecology
DX: N94.9 Unspecified condition associated with female genital organs and menstrual cycle (principal); N76.0 Acute vaginitis
CPT/HCPCS: 87491; 87591; 87480; 87510; 87660

== ENCOUNTER → 2023-11-09 16:39 | Outpatient (CLI) | payer BC, SELFPAY ==
--- NOTE | 2023-11-09 13:30 | DI.RAD_ITS ---
Exam(s) XR CHEST 2V PA LATERAL EXAM: XR CHEST 2V PA LATERAL CLINICAL HISTORY: chronic cough, R05.3 TECHNIQUE: 2D digital imaging was performed. COMPARISON: CR,RF BARIUM SWALLOW UGI PA CXR from 10/03/2015 FINDINGS: HEART: Normal size. Aorta: Not dilated. PULMONARY VASCULATURE: Normal. LUNGS: Clear. PLEURAL SPACE: No pleural effusion or pneumothorax. BONE:Unremarkable for age. Soft tissues: Unremarkable. IMPRESSION: No acute abnormality. DATA REPOSITORY: RADIATION DOSE DELIVERED:
== END ==
PROVIDERS: PCP Nurse Practitioner Family; Visit Provider Nurse Practitioner Family
DX: R05.3 Chronic cough (principal)
CPT/HCPCS: 71046